=== PATIENT | male | born 1995 | race Caucasian/White ===

== ENCOUNTER 2020-04-09 05:49 | Day surgery (SDC) | payer OTHER ==
[~2020-04-09 05:49] MED LIST: DICLOFENAC SODI50 MG PO
[2020-04-09] MEDS ORDERED: PEPCID AC20 MG PO (08:57)
== END 2020-04-09 10:25 | disposition home or self-care (01) ==
LOC: AMB-ENDOS 05:49
PROVIDERS: ATTEND Surgery
DX: D13.1 Benign neoplasm of stomach (principal); K44.9 Diaphragmatic hernia without obstruction or gangrene; Z20.828 Contact with and (suspected) exposure to other viral communicable diseases